=== PATIENT | male | born 1960 | race Caucasian/White ===

== ENCOUNTER 2017-10-18 23:51 | Emergency (ER) | payer SELFPAY ==
[~2017-10-18 23:51] MED LIST: Sodium Chloride 0.9% 1,000 ML BAG ONE
[2017-10-19 00:31] LABS: #Basophils 0.1 thou/uL (0.0-0.2); #Eosinphils 0.1 thou/uL (0.0-0.7); #Lymphocytes 0.8 thou/uL (1.20-3.40); #Monocytes 0.5 thou/uL (0.11-0.59); #Neutrophils 2.3 thou/uL (1.40-6.50); %Basophils 2.1 % (0.0-1.0); %Eosinophils 2.7 % (0.0-10.0); %Lymphocytes 21.1 % (21.0-51.0); %Monocytes 13.8 % (0.0-10.0); %Neutrophils 60.3 % (42.0-75.0); Hemoglobin 11.7 g/dL (14.0-18.0); Mean Corpuscular HGB CONC 33.6 g/dL (32.0-36.0); Mean Corpuscular Hemoglobin 26.6 pg (27.0-31.0); Mean Corpuscular Volume 79.1 fl (80.0-94.0); Mean Platelet Volume 6.3 fL (7.4-10.4); Platelet Count 146 thou/uL (130-400); RBC Distribution Width 11.3 % (11.5-14.5); White Blood Cell (WBC) Count 3.9 thou/uL (4.8-10.8)
[2017-10-19] MEDS ORDERED: Insulin Regular 300 UNITS/3 ML VIAL ONE (00:34)
[2017-10-19] MEDS ORDERED: Ondansetron HCl/PF 4 MG/2 ML Vial ONE (00:34)
[2017-10-19 00:48] LABS: ALT (SGPT) 31 U/L (8-55); AST (SGOT) 18 U/L (5-34); Albumin 3.8 g/dL (3.5-5.0); Alkaline Phosphatase 62 U/L (40-150); Anion Gap 17 mmol/L (10-20); BUN (Urea Nitrogen) 19 mg/dL (8.4-25.7); Bilirubin, Total 0.3 mg/dL (0.2-1.2); Calc. Creatinine Clearance 0 mL/min (70-130); Calcium 8.9 mg/dL (7.8-10.44); Carbon Dioxide 22 mmol/L (22-29); Chloride 99 mmol/L (98-107); Estimated GFR-MDRD 55; Potassium 4.2 mmol/L (3.5-5.1); Protein, Total 6.8 g/dL (6.0-8.3); Sodium 134 mmol/L (136-145)
[2017-10-19] MEDS ORDERED: cefTRIAXone\\ROCEPHIN 1 GM VIAL ONE (00:49)
[2017-10-19 00:58] LABS: Glucose 682 mg/dL (70-105)
[2017-10-19 02:05] LABS: Bilirubin Negative (Negative); Blood, Urine Negative (Negative); Clarity Clear (Clear); Glucose, Urine (Dipstick) >=1000 mg/dL (Negative); Leukocyte Negative (Negative); Nitrite Negative (Negative); Protein, Urine (Dipstick) Negative (Neg-Trace); Urobilinogen 0.2 mg/dL (0.2-1.0)
[2017-10-19 02:06] LABS: Specific Gravity, Urine 1.033 (1.002-1.036)
--- NOTE | 2017-10-19 08:49 | RAD ---
PORTABLE CHEST: Date: 10/19/17 PROVIDED CLINICAL HISTORY: Dyspnea. FINDINGS: No comparisons. Cardiac and mediastinal silhouette within normal limits. Lungs appear clear. There is no pleural flui d or pneumothorax apparent. IMPRESSION: No evidence for an acute cardiopulmonary process. POS: [facility]
== END 2017-10-19 02:50 ==
LOC: MADERS 23:51
DX: E11.01 Type 2 diabetes mellitus with hyperosmolarity with coma (principal); I10 Essential (primary) hypertension; Z79.4 Long term (current) use of insulin
CPT/HCPCS: 36416; 71045; 80053; 81003; 82010; 85025; 96365; 96366; 96375; 96376; J0696; J1815; J2405; J7050

== ENCOUNTER 2018-01-09 15:29 | Outpatient (CLI) | payer OTHER ==
--- NOTE | 2018-01-09 16:28 | RAD ---
TWO VIEWS CHEST: 01/09/18 HISTORY: Cough. COMPARISON: 10/19/17 FINDINGS: Normal cardiac silhouette. Pulmonary vessels and hilum are normal. Costophrenic angles are clear. Esau g volumes are diminished. No consolidation or mass. chronic changes suspected. No pneumothorax or oss eous abnormalities. IMPRESSION: No acute cardiopulmonary process. POS: [facility]
--- NOTE | 2018-01-09 16:30 | RAD ---
RIGHT SHOULDER THREE VIEWS: HISTORY: A 57-year-old male with a history of right shoulder pain, throbbing. History of torn muscle. FINDINGS: Hypertrophic changes noted of the AC joint with some hypertrophic osteophytosis. There appears to be a somewhat narrowed humeral acromial space, raising concern for the possibility of rotator cuff inju ry or insufficiency. Healed right rib fractures. IMPRESSION: Degenerative and osteoarthrosis changes. No acute fracture or dislocation. Changes evident for pote ntial rotator cuff injury/insufficiency. POS: [facility]
== END 2018-01-09 15:30 | disposition home or self-care (01) ==
LOC: MADRAD 15:29
PROVIDERS: ATTEND Family Medicine
DX: M25.511 Pain in right shoulder (principal); R59.0 Localized enlarged lymph nodes; M19.011 Primary osteoarthritis, right shoulder
CPT/HCPCS: 71046